=== PATIENT | female | born 1945 | race Caucasian/White ===

== ENCOUNTER → 2016-09-22 | Outpatient (CLI) | payer MEDICARE | LOC: LAB 09:15 | DX: Z01.82 Encounter for allergy testing (principal) | CPT/HCPCS: 36415 ==

== ENCOUNTER → 2016-12-08 | Outpatient (CLI) | payer MEDICARE | LOC: KOH-I 10:41 | DX: M54.5 Low back pain (principal); M83.9 Adult osteomalacia, unspecified; M47.896 Other spondylosis, lumbar region | CPT/HCPCS: 72100; 72220 ==